=== PATIENT | female | born 1995 | race Caucasian/White ===

== ENCOUNTER 2019-12-08 11:58 | Emergency (ER) | payer OTHER ==
[~2019-12-08] VITALS: Ht 167.6 cm; Wt 58.1 kg
[2019-12-08 12:04] VITALS: BP 115/61
--- NOTE | 2019-12-08 12:06 | NUR ---
AMBULATED TO BED 12
--- NOTE | 2019-12-08 12:10 | NUR ---
24 Y/O FEMALE PRESENTED TO ED C/O RLQ ABDOMINAL PAIN X 3 DAYS. PT RATES PAIN 8/ , STATES ITS A STABBING PAIN. PT STATES PAIN FIRST STARTED LIKE ABDMONIAL CRAMPS BUT HAS GOTTEN PROGRESSIVELY WORSE. PT ADBOMEN FLAT , TENDER TO TOUCH ON RLQ. PT STATES N/V/D , VOMITTING X 2 DAYS AGO. PT LMP 11/28/19. PT DENIES TAKING ANY MEDICATION FOR PAIN. PT BREATHING EVEN AND UNLABORED. PT RESTING IN BED AT LOWEST POSITION, HOB ELEVATED , SIDE RAILS X1. PMH: NONE RX: NONE
--- NOTE | 2019-12-08 12:41 | NUR ---
PT TAKEN TO CT VIA WHEELCHAIR.
[2019-12-08 12:45] LABS: BASOPHILS % (AUTO) 0.8 % (0.0-2.0); EOSINOPHILS % (AUTO) 0.9 % (0.0-4.0); HEMATOCRIT 38.4 % (36-48); HEMOGLOBIN 12.8 g/dL (12.0-16.0); LYMPHOCYTES # (AUTO) 1.6 K/uL (2.5-16.5); LYMPHOCYTES % (AUTO) 34.9 % (20.5-51.1); MEAN CORPUSCULAR HEMOGLOBIN 29 pg (27-31); MEAN CORPUSCULAR HGB CONC 33 g/dL (33-37); MEAN CORPUSCULAR VOLUME 86.1 fL (80-94); MONOCYTES # (AUTO) 0.4 K/uL (0.8-1.0); MONOCYTES % (AUTO) 9.9 % (1.7-9.3); NEUTROPHILS # (AUTO) 2.4 K/uL (1.8-7.7); NEUTROPHILS % (AUTO) 53.5 % (42.2-75.2); PLATELET COUNT (AUTO) 176 K/uL (140-450); RED BLOOD CELL COUNT(AUTO) 4.46 MIL/uL (4.20-5.40); RED CELL DISTRIBUTION WIDTH 12.9 % (11.6-13.7); WHITE BLOOD COUNT (AUTO) 4.5 K/uL (4.8-10.8)
[2019-12-08 12:45] LABS: APPEARANCE,URINE SL CLOUDY (CLEAR); BILIRUBIN,URINE NEGATIVE (NEGATIVE); BLOOD, URINE NEGATIVE (NEGATIVE); COLOR,URINE YELLOW (YELLOW); LEUKOCYTE ESTERASE ,URINE NEGATIVE (NEGATIVE); NITRITE, URINE NEGATIVE (NEGATIVE); PH,URINE 7.5 (5.0-9.0); UGLUCOSE NEGATIVE (NEGATIVE)
--- NOTE | 2019-12-08 12:53 | NUR ---
PT RETURNED FROM CT VIA WHEELCHAIR.
[2019-12-08 13:01] LABS: ALBUMIN 3.7 g/dL (3.4-5.0); ANION GAP 10.9 (8-16); CARBON DIOXIDE 30.1 mmol/L (21-32); CREATININE 0.7 mg/dL (0.6-1.3); TOTAL BILIRUBIN 0.6 mg/dL (0.0-1.0)
[2019-12-08 13:44] VITALS: BP 117/63
--- NOTE | 2019-12-08 13:45 | NUR ---
Patient discharged with v/s stable. Written and verbal after care instructions given and explained. Patient alert, oriented and verbalized understanding of instructions. Ambulatory with steady gait. All questions addressed prior to discharge. ID band removed. Patient advised to follow up with PMD. Rx of BENTYL given. Patient educated on indication of medication including possible reaction and side effects. Opportunity to ask questions provided and answered.
== END 2019-12-08 13:45 | disposition home or self-care (01) ==
LOC: MED 11:58
DX: R10.11 Right upper quadrant pain (principal); Z88.2 Allergy status to sulfonamides
CPT/HCPCS: 36415; 80053; 81003; 81025; 83690; 85025; 86140; 99284